=== PATIENT | female | born 1950 | race Caucasian/White ===

== ENCOUNTER 2024-02-22 12:00 | Emergency (ER) | payer OTHER, SELFPAY ==
[2024-02-22 12:10] VITALS: BP 155/88
--- NOTE | 2024-02-22 13:12 | ED.GENMED ---
History of Present Illness
<Ladan Narayanan DO - Last Filed: 02/22/24 14:07>
General
Chief Complaint: Musculo-Skeletal Complaint
Time Seen by Provider: 02/22/24 12:43
<Bernie Magallanes MD, Resident - Last Filed: 02/22/24 14:23>
History of Present Illness
History of Present Illness:
With past medical history of hypothyroidism and HTN who presented to the ER she states that yesterday evening she was in [place] at home and as she was walking she tripped and fell onto her left arm. She denies any head trauma or LOC. She has a
dull ache in her left wrist that radiates up to left forearm that is aggravated on movement with left hand. She denies any loss of strength, loss of sensations or lacerations. She states that she took a baby aspirin but had not use any other pain
medication.
Past History
<Bernie Magallanes MD, Resident - Last Filed: 02/22/24 14:23>
Past History
ED Past Medical History: HTN, Hypothyroidism and Other (Autoimmune disorder)
ED Past Surgical History: Appendectomy
Social History
Tobacco: Non-smoker
Alcohol: None
Personal:
Living: with family
Employment: Employed
Review of Systems
<Bernie Magallanes MD, Resident - Last Filed: 02/22/24 14:23>
Review of Systems
All Other Systems: ROS reviewed and negative except as documented in HPI and ROS
Phy Exam
<Bernie Magallanes MD, Resident - Last Filed: 02/22/24 14:23>
General Physical Exam
General Presentation: well appearing and no apparent distress
Cardiovascular Exam
Cardiovascular Exam: regular rate/rhythm and no murmur
Heart Sounds: normal
Pulmonary Exam
Pulmonary Exam: lungs clear and no crackles
Gastrointestinal Exam
Gastrointestinal Exam: non tender, soft and non distended
Neurological Exam
Neurological Exam: oriented x3
Musculoskeletal Exam
Musculoskeletal Exam: no edema and other (Mild tenderness at left wrist)
Skin Exam
Skin Exam: warm/dry
Psychiatric Exam
Psychiatric Exam: normal mood/affect
Course
<Ladan Narayanan DO - Last Filed: 02/22/24 14:07>
Orders/Labs/Results
Orders:
Orders
02/22/24 13:14
CR Wrist - Left Min 3 Views Urgent
Comment:
Reason For Exam: fall on hand
02/22/24 13:28
CR Elbow - Left Min 3 Views Urgent
Comment:
Reason For Exam: fall on left arm
Vital Signs
Initial and Last Documented VS:
Initial Vital Signs
Temp Pulse Resp BP Pulse Ox
98.3 F 99 16 155/88 100
02/22/24 12:10 02/22/24 12:10 02/22/24 12:10 02/22/24 12:10 02/22/24 12:10
Last Documented Vital Signs
Temp Pulse Resp BP Pulse Ox
98.3 F 99 16 155/88 100
02/22/24 12:10 02/22/24 12:10 02/22/24 12:10 02/22/24 12:10 02/22/24 12:10
<Bernie Magallanes MD, Resident - Last Filed: 02/22/24 14:23>
Orders/Labs/Results
Orders:
Orders
02/22/24 13:14
CR Wrist - Left Min 3 Views Urgent
Comment:
Reason For Exam: fall on hand
02/22/24 13:28
CR Elbow - Left Min 3 Views Urgent
Comment:
Reason For Exam: fall on left arm
Vital Signs
Initial and Last Documented VS:
Initial Vital Signs
Temp Pulse Resp BP Pulse Ox
98.3 F 99 16 155/88 100
02/22/24 12:10 02/22/24 12:10 02/22/24 12:10 02/22/24 12:10 02/22/24 12:10
Last Documented Vital Signs
Temp Pulse Resp BP Pulse Ox
98.3 F 99 16 155/88 100
02/22/24 12:10 02/22/24 12:10 02/22/24 12:10 02/22/24 12:10 02/22/24 12:10
<Bernie Magallanes MD, Resident - Last Filed: 02/22/24 14:23>
*Critical Care Note
Total Time (30-74mins, 75-104mins- exclusive of procedures): Not Applicable
<Bernie Magallanes MD, Resident - Last Filed: 02/22/24 14:23>
Update Note
Update Note:
No severe ecchymosis/swelling present on exam of left arm. Retain full ROM of left arm. Mild tenderness on palpation of left wrist. Will xray left wrist and elbow.
Xrays were unremarkable. Advised rest, OTC pain (ibuprofen), tha wrap and ice pack for symptom control along with family physician follow up.
ED Attending Note
<Ladan Narayanan DO - Last Filed: 02/22/24 14:07>
ED Attending Note
Patient seen and examined by attending physician: Yes
I performed a history and physical exam of patient and discussed management with resident, I reviewed resident's note and agree with documented findings and plan of care.: Yes
ED Attending Note:
I have reviewed and agree with Dr. Magallanes's history and treatment plan. 73yoF presenting with left arm pain s/p trip and fall last night, landing on her left arm. Pt denies striking her head or loss of consciousness. Pt reports pain of left
forearm radiating to left elbow. tenderness to palpation left forearm. no left snuffbox tenderness. 2+ left radial pulse. FROM left hand and elbow. no overlying erythema, ecchymosis, or swelling. Will xray
Xrays negative for acute fracture. higher suspicion for sprain. Recommended rest, ice, elevation, tylenol/motrin prn for pain, stable for discharge with PCP follow up
-
Portions of this chart may have been created with voice recognition software.� Occasional wrong word or��sound alike� substitutions may have occurred due to the inherent limitations of voice recognition software.
Discharge Plan
Departure
Patient Disposition: Home (Routine Discharge)
Date of Disposition: 02/22/24
Time of Disposition: 14:08
Patient with high blood pressure during this ER visit?: Yes
Discharge Problem:
Left wrist sprain
Activity Restrictions/Additional Instructions:
If experiencing symptoms such as worsening arm pain, loss of sensation or strength in arm please return to the ER. Follow up with primary care physician for left arm pain and further care. Use Ibuprofen, THA wrap and intermittent use of ice pack for
symptom control.
Interventions
Interventions:
*Risk Screen - Suicide Last Done: 02/22/24 12:10
*General Assessment Last Done: 02/22/24 12:10
*Neglect/Abuse Screening Last Done: 02/22/24 12:10
Discharge Date and Time
Print Language: [place]
== END 2024-02-22 14:46 | disposition home or self-care (01) ==
LOC: EMR 12:00
PROVIDERS: EMERGENCY PHYSICIAN Emergency Medicine
DX: S63.502A Unspecified sprain of left wrist, initial encounter (principal); W01.0XXA Fall on same level from slipping, tripping and stumbling without subsequent striking against object, initial encounter; Y93.01 Activity, walking, marching and hiking; E03.9 Hypothyroidism, unspecified; I10 Essential (primary) hypertension; D89.89 Other specified disorders involving the immune mechanism, not elsewhere classified; Z90.49 Acquired absence of other specified parts of digestive tract
CPT/HCPCS: 99283; 73080; 73110

== ENCOUNTER → 2025-01-25 12:30 | Outpatient (REF) | payer BC, SELFPAY | LOC: HWRAD 12:30 | PROVIDERS: ATTENDING PHYSICIAN Otolaryngology; FAMILY PHYSICIAN Physician Assistant | DX: H90.12 Conductive hearing loss, unilateral, left ear, with unrestricted hearing on the contralateral side (principal) | CPT/HCPCS: 70480 ==